=== PATIENT | male | born 1965 | race African-American/Black ===

== ENCOUNTER 2021-05-05 04:22 | Emergency (ER) | payer OTHER, SELFPAY ==
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
[2021-05-05 04:31] VITALS: BP 157/100; PULSE 68; RESP 16; TEMP 37; O2SAT 100
[2021-05-05 06:04] VITALS: BP 138/98; PULSE 60; RESP 16; O2SAT 98
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
[2021-05-05 08:19] VITALS: BP 129/94; PULSE 64; RESP 18; O2SAT 97
== END 2021-05-05 08:20 | disposition home or self-care (01) ==
PROVIDERS: Emergency Provider Emergency Medicine
DX: S33.5XXA Sprain of ligaments of lumbar spine, initial encounter (principal); S16.1XXA Strain of muscle, fascia and tendon at neck level, initial encounter; M47.812 Spondylosis without myelopathy or radiculopathy, cervical region; V49.40XA Driver injured in collision with unspecified motor vehicles in traffic accident, initial encounter
CPT/HCPCS: 70450; 72100; 72125; 99284